=== PATIENT | male | born 1965 | race African-American/Black ===

== ENCOUNTER 2016-06-06 13:54 | Emergency (ER) | payer OTHER, MEDICAID ==
[~2016-06-06] VITALS: Ht 180.3 cm; Wt 75.0 kg
[2016-06-06 14:23] VITALS: BP 137/64
== END 2016-06-06 16:10 | disposition home or self-care (01) ==
LOC: ER 14:18
DX: G40.409 Other generalized epilepsy and epileptic syndromes, not intractable, without status epilepticus (principal); Z91.14 Patient's other noncompliance with medication regimen
CPT/HCPCS: 99283